=== PATIENT | female | born 2005 | race Caucasian/White ===

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

== ENCOUNTER 2023-12-26 18:00 | Inpatient (IN) | payer MEDICAID, OTHER | END 2024-01-01 13:50 | disposition home or self-care (01) | DRG 754 | LOC: 3MHU 18:00 | PROVIDERS: ADMIT Psychiatry & Neurology Psychiatry; ATTEND Psychiatry & Neurology Psychiatry | DX: F32.A Depression, unspecified (principal); R45.850 Homicidal ideations; F41.9 Anxiety disorder, unspecified; R44.1 Visual hallucinations; Z91.51 Personal history of suicidal behavior ==